=== PATIENT | male | born 1985 | race Caucasian/White ===

== ENCOUNTER → 2019-12-18 | Outpatient (CLI) | payer OTHER ==
--- NOTE | 2019-12-19 07:20 | XR ---
EXAMINATION TYPE: XR Hip Complete RT DATE OF EXAM: 12/18/2019 CLINICAL HISTORY: Chronic posttraumatic right hip pain TECHNIQUE: AP and frogleg views of the right hip are obtained. COMPARISON: None. FINDINGS: There is no acute fracture/dislocation evident in the right hip. The joint space in the r ight hip appears aligned. There is an osseous fragment overlying the lateral femoral head neck juncti on measuring 2.3 x 3.1 cm. Ossified fragment is also seen lateral to the inferior aspect of the great er trochanter. The overlying soft tissue appears unremarkable. IMPRESSION: 1. Large osseous fragment overlying the lateral femoral head neck junction on the right, this could b e sequela of prior trauma and relate to heterotopic ossification or myositis ossificans, however give n its location this predisposes the patient to femoral acetabular impingement syndrome as a cam defor mity would. CT is recommended for better anatomic delineation and to ensure no soft tissue component of an unlikely bone producing neoplasm. 2. No acute fracture or dislocation in the right hip.
== END | disposition home or self-care (01) ==
LOC: RAD 16:23
DX: G89.21 Chronic pain due to trauma (principal)
CPT/HCPCS: 73502